=== PATIENT | male | born 1965 | race Caucasian/White ===

== ENCOUNTER 2019-02-10 16:05 | Inpatient (IN) | payer BC, OTHER ==
[~2019-02-10] VITALS: Ht 180.3 cm; Wt 99.8 kg
[~2019-02-10 16:05] MED LIST: AMLO5TAB4 PO; CANA100T PO; CARI350T29 PO; DUTA0.5C PO; FAMO-96 PO; GLIP5TAB13 PO; IBUP-1542 PO; LISI10TA2 PO; METF100010 PO; WORK NOTE
[2019-02-10] MEDS ORDERED: SODIUM CHLORIDE 0.9% 1L BAG IV* STA (16:44)
[2019-02-10] MEDS ORDERED: CEFEPIME 2GM/50 ML (PMX) 50 ML IVPB STA (16:44)
[2019-02-10] MEDS ORDERED: VANCOMYCIN 1 GM (PMX) 250 ML IVPB ONE (17:00)
[2019-02-10] MEDS ORDERED: morphine 4 MG/ML VIAL IV STA (19:07)
[2019-02-10] MEDS ORDERED: ONDANSETRON 4 MG INJ IV STA (19:17)
[2019-02-10] MEDS ORDERED: ONDANSETRON 4 MG INJ ONE (19:18)
[2019-02-10] MEDS ORDERED: morphine 2 MG INJ IV PRN (19:30)
[2019-02-10] MEDS ORDERED: NACL 0.9% 3 ML SYG IV SCH (19:30)
[2019-02-10] MEDS ORDERED: HYDROCODONE/APAP (5/325) TAB PO PRN (19:30)
[2019-02-10] MEDS ORDERED: ONDANSETRON 4 MG INJ IV PRN (20:00)
[2019-02-10] MEDS ORDERED: ACETAMINOPHEN 325 MG TAB PO PRN (20:00)
[2019-02-10 21:10] VITALS: BP 132/70; PULSE 98; RESP 18
[2019-02-10 21:30] VITALS: BP 132/70; PULSE 98; RESP 18; Ht 180.3 cm; Wt 99.8 kg
[2019-02-10] MEDS: ACETAMINOPHEN 325 MG TAB PO PRN (22:17)
[2019-02-10] MEDS ORDERED: IBUPROFEN 600 MG TAB PO ONE (22:30)
[2019-02-10] MEDS: SOD CHLORIDE 0.9% 1,000 ML IV SCH (22:52)
[2019-02-10 23:00] VITALS: BP 148/72; PULSE 90; RESP 18
[2019-02-11 00:04] VITALS: BP 144/72; PULSE 91; RESP 18
[2019-02-11 02:05] VITALS: BP 124/63; PULSE 75; RESP 18
[2019-02-11] MEDS: VANCOMYCIN 1.5 GM/NS 250 ML 250 ML IVPB SCH ×2 (05:42→17:46)
[2019-02-11] MEDS: ACETAMINOPHEN 325 MG TAB PO PRN (06:39)
[2019-02-11 07:41] VITALS: BP 134/63; PULSE 72; RESP 16
[2019-02-11 07:43] VITALS: BP 134/63; PULSE 72; RESP 16
[2019-02-11] MEDS: SOD CHLORIDE 0.9% 1,000 ML IV SCH ×2 (08:30→15:07)
[2019-02-11] MEDS ORDERED: GLUCOSE GEL 15 GRAM TUBE PO PRN ×2 (09:00)
[2019-02-11] MEDS ORDERED: GLUCOSE GEL 15 GRAM TUBE BUCCAL PRN (09:00)
[2019-02-11] MEDS ORDERED: GLUCAGON 1 MG INJ IM PRN (09:00)
[2019-02-11] MEDS ORDERED: DEXTROSE 50% 50 ML SYRINGE IV PRN ×2 (09:00)
[2019-02-11] MEDS ORDERED: VANCOMYCIN IV PER PHARMACY XX SCH (09:00)
[2019-02-11] MEDS: CEFEPIME 1GM/50 ML (PMX) 50 ML IVPB SCH ×3 (09:03→21:46)
[2019-02-11] MEDS: AMLODIPINE 5 MG TAB PO SCH (09:58)
[2019-02-11] MEDS: DUTASTERIDE 0.5 MG CAP PO SCH (09:58)
[2019-02-11] MEDS: LISINOPRIL 10 MG TAB PO SCH (09:58)
[2019-02-11] MEDS: CARISOPRODOL 350 MG TAB PO PRN ×2 (10:12→22:11)
[2019-02-11] MEDS: ACCU-CHEK XX SCH ×3 (11:30→21:44)
[2019-02-11] MEDS: INSULIN ASPART [NOVOLOG] 3 ML PEN SC SCH ×3 (12:34→20:40)
[2019-02-11] MEDS ORDERED: LIDOCAINE 1% (MDV) 20 ML INJ ONE (13:15)
[2019-02-11] MEDS ORDERED: LIDOCAINE 1% (MPF) 5 ML VIAL INFIL ONE (13:30)
[2019-02-11] MEDS ORDERED: LIDOCAINE 1% (MDV) 20 ML INJ SC ONE (14:00)
[2019-02-11] MEDS: KETOROLAC 30 MG INJ IV SCH ×2 (14:03→19:01)
[2019-02-11 14:13] VITALS: BP 121/67; PULSE 86; RESP 16
[2019-02-11] MEDS ORDERED: metFORMIN 500 MG TAB PO SCH (18:05)
[2019-02-11] MEDS ORDERED: INSULIN GLARGINE [LANTus] (100 UNITS/ML) SYG SC SCH (20:00)
[2019-02-11 20:13] VITALS: BP 134/71; PULSE 95; RESP 16
[2019-02-12] MEDS: KETOROLAC 30 MG INJ IV SCH ×3 (01:40→13:42)
[2019-02-12] MEDS ORDERED: ACCU-CHEK XX SCH (02:00)
[2019-02-12 02:53] VITALS: BP 132/75; PULSE 81; RESP 16
[2019-02-12] MEDS: SOD CHLORIDE 0.9% 1,000 ML IV SCH (04:34)
[2019-02-12] MEDS: VANCOMYCIN 1.5 GM/NS 250 ML 250 ML IVPB SCH (05:31)
[2019-02-12] MEDS: ACCU-CHEK XX SCH ×2 (07:30→11:30)
[2019-02-12 08:04] VITALS: BP 132/79; PULSE 79; RESP 18
[2019-02-12] MEDS: AMLODIPINE 5 MG TAB PO SCH (08:12)
[2019-02-12] MEDS: DUTASTERIDE 0.5 MG CAP PO SCH (08:12)
[2019-02-12] MEDS: LISINOPRIL 10 MG TAB PO SCH (08:12)
[2019-02-12] MEDS: INSULIN ASPART [NOVOLOG] 3 ML PEN SC SCH ×2 (08:16→11:54)
[2019-02-12] MEDS ORDERED: VANCOMYCIN 1.25 GM/NS 250 ML 250 ML IVPB SCH (14:00)
== END 2019-02-12 14:23 | disposition home or self-care (01) | DRG 565 ==
LOC: E/R 16:05 → EDUNIT# 16:05 → UNDOADMOB 19:35 → PP2 19:35 → OBSVTOIN 20:46
PROVIDERS: ADMIT Internal Medicine; ATTEND Internal Medicine
PROC: 0S9C3ZX Drainage of Right Knee Joint, Percutaneous Approach, Diagnostic (ICD-10-PCS; principal; 2019-02-11)
DX: M25.461 Effusion, right knee (principal); R65.10 Systemic inflammatory response syndrome (SIRS) of non-infectious origin without acute organ dysfunction; E11.9 Type 2 diabetes mellitus without complications; M25.561 Pain in right knee; I10 Essential (primary) hypertension; F17.200 Nicotine dependence, unspecified, uncomplicated; Z79.4 Long term (current) use of insulin
CPT/HCPCS: 36415; 71045; 73562; 73564; 80048; 80053; 80061; 80202; 81003; 82962; 83036; 83605; 83735; 84443; 84484; 85025; 85610; 85730; 86060; 87070; 87075; 87086; 87102; 87116; 89060; 93005; 96374; 96375; J0692; J1815; J1885; J2270; J2405; J3370; J7030